=== PATIENT | female | born 1990 | race African-American/Black ===

== ENCOUNTER 2016-08-28 00:27 | Emergency (ER) | payer SELFPAY ==
[~2016-08-28] VITALS: Ht 152.4 cm; Wt 63.5 kg
[2016-08-28 00:30] VITALS: BP 104/53
[2016-08-28 00:35] VITALS: BP 104/53
--- NOTE | 2016-08-28 07:09 | Emergency Room Report ---
History of Present Illness General Chief Complaint: Active Labor Source: Patient Present Illness HPI Patient is a 26-year-old female presented after increased abdominal pain intermittently for the past few hours. Patient reports being 3 P2 at approximately 35 weeks who presented after increased abdominal pain. She denied of leakage of fluid. She had not been bleeding. She had not been having any uterine discharge. Patient stated that she had had been having movement. She began having contractions approximately every 3-5 minutes. She denied any urge to push at this time. Allergies: Coded Allergies: No Known Allergies (Unverified , 08/28/16) Patient History Past Medical History: see triage record Now: Yes - 35 weeks : 5 Para: 4 Reviewed Nursing Documentation: PMH: Agreed, PSxH: Agreed Nursing Documentation-PMH Past Medical History: No Stated History Review of Systems All Other Systems: negative except mentioned in HPI Physical Exam Vital Signs Date Time Temp Pulse Resp B/P Pulse Ox O2 Delivery O2 Flow Rate FiO2 08/28/16 00:29 98.2 117 14 104/53 97 Room Air General Appearance: well appearing, no apparent distress, alert, GCS 15 Head: normocephalic, atraumatic ENT: hearing grossly normal, normal voice Neck: full range of motion, supple Respiratory: no respiratory distress, speaking full sentences Gastrointestinal: other - gravid uterus Musculoskeletal: normal inspection, no calf tenderness Neurologic: normal inspection, alert, oriented x3, normal gait Psychiatric: mood/affect normal Skin: no rash Medical Decision Making Diagnostic Impression: Primary Impression: Intrauterine ER Course Patient presented for abdominal pain. Differential diagnoses included ischemic bowel, appendicitis, perforated viscus, abdominal aortic aneurysm, inferior myocardial infarction, viral gastroenteritis, active labor. The bedside ultrasound was performed which showed intrauterine with adequate heart tones. The patient was advised risk benefits alternatives of leaving against medical ice and she indicated understanding stated she wanted to leave due to the fact that we have no obstetrical services available. Patient was offered transfer but she stated she wanted to leave immediately. Last Vital Signs Date Time Temp Pulse Resp B/P Pulse Ox O2 Delivery O2 Flow Rate FiO2 08/28/16 00:35 98.2 14 104/53 97 Room Air 08/28/16 00:29 117 Status: unchanged Disposition: AGAINST MEDICAL ADVICE Condition: Stable Referrals: NOT CHOSEN IPA/,REFERRING (PCP) Otis Lr Aug 28, 2016 07:09
== END 2016-08-28 01:30 | disposition left against medical advice (07) ==
LOC: EMR 01:08
DX: O26.893 Other specified pregnancy related conditions, third trimester (principal); Z3A.35 35 weeks gestation of pregnancy; R10.9 Unspecified abdominal pain
CPT/HCPCS: 99282